=== PATIENT | female | born 1980 | race Caucasian/White ===

== ENCOUNTER 2017-04-27 13:17 | Emergency (ER) | payer SELFPAY ==
[~2017-04-27] VITALS: Ht 167.6 cm; Wt 51.0 kg
[~2017-04-27 13:17] MED LIST: TRAM50 PO; antacid
[2017-04-27 13:20] VITALS: BP 147/71; PULSE 123; RESP 16; TEMP 98; O2SAT 97
--- NOTE | 2017-04-27 13:51 | PD ---
HPI Chief Complaint: GI Complaint Time Seen by Provider: 13:27 Travel History International Travel<30 days: No Contact w/Intl Traveler<30days: No Traveled to known affect area: No History of Present Illness HPI 37-year-old female presents with note of multiple episodes of nonbloody emesis since last night. She states she had a bowel movement today that started normal but then became loose. She states that she recently was around someone that she shared a drink with that have food poisoning. She states that she's not having any fever or sharp abdominal pain or other concurrent complaints. She is currently on her menstrual cycle. Quality is nonbloody. Severity is multiple episodes. Duration is since last night. She denies specific modifying factors. PFSH Past Medical History Medical History: Denies Significant Hx Influenza Vaccination: No ?: Not LMP: NOW Past Surgical History Cholecystectomy: Yes Social History Alcohol Use: Yes (OCC) Tobacco Use: Yes (1 PPD) Substance Use: No Allergies-Medications (Allergen,Severity, Reaction): Coded Allergies: No Known Allergies (Unverified , 04/27/17) Reported Meds & Prescriptions Reported Meds & Active Scripts Active Zofran Odt (Ondansetron Odt) 4 Mg Tab 4 Mg SL Q6HR PRN Ultram (Tramadol HCl) 50 Mg Tab 50 Mg PO Q6 PRN Reported [antacid] Review of Systems Except as stated in HPI: all other systems reviewed are Neg Physical Exam Narrative GENERAL: Well-nourished, well-developed patient. SKIN: Warm and dry. HEAD: Normocephalic and atraumatic. EYES: No injection or drainage. ENT: No nasal drainage noted. NECK: Supple, trachea midline. CARDIOVASCULAR: Regular rate and rhythm RESPIRATORY: no increased effort. No accessory muscle use. GASTROINTESTINAL: Abdomen soft, non-tender, nondistended. NEUROLOGICAL: Awake and alert. Motor and sensory grossly within normal limits. Normal speech. Data Data Last Documented VS Vital Signs Date Time Temp Pulse Resp B/P (MAP) Pulse Ox O2 Delivery O2 Flow Rate FiO2 04/27/17 13:20 98.0 123 16 147/71 (96) 97 Orders Orders Ed Urine Pregnancytest Poc (04/27/17 13:27) Ondansetron Odt (Zofran Odt) (04/27/17 14:00) Oral Rehydration (04/27/17 13:57) Ibuprofen (Motrin) (04/27/17 14:30) Ed Discharge Order (04/27/17 14:33) [facility] Medical Decision Making Medical Screen Exam Complete: Yes Emergency Medical Condition: Yes Medical Record Reviewed: Yes (pmh confirmed) Differential Diagnosis Gastroenteritis, gastritis, , dehydration Narrative Course Will check a care test and dose with Zofran ODT and reevaluate beta is negative, no emesis here, tolerating oral rehydration and wanting to go , Patient denies any new complaints and states that they are feeling better. Patient happy with care, all questions answered. Patient knows that follow up is incumbent on them and to return to the emergency room immediately if new or worsening symptoms develop. Patient given strict return precautions, vitals reviewed and are normal, agrees to further workup as an outpatient. Diagnosis Primary Impression: Vomiting Qualified Codes: R11.2 - Nausea with vomiting, unspecified Patient Instructions: General Instructions Additional Instructions: zofran as needed, follow with primary saturday, return as needed Med/Other Pt SpecificInfo: Prescription(s) given Scripts Ondansetron Odt (Zofran Odt) 4 Mg Tab 4 MG SL Q6HR Y for Nausea/Vomiting, #15 TAB 0 Refills Prov: Naina Banegas MD 04/27/17 Disposition: 01 DISCHARGE HOME Condition: Stable Naina Banegas MD Apr 27, 2017 13:51
[2017-04-27] MEDS ORDERED: ONDANSETRON ODT 4 MG TAB PO ONE (14:00)
[2017-04-27] MEDS ORDERED: IBUPROFEN 600 MG TAB PO ONE (14:30)
[2017-04-27] MEDS ORDERED: ZOFR4TAB3 SL (14:34)
[2017-04-27] MEDS ORDERED: PRED50 PO (22:49)
[2017-04-28] MEDS ORDERED: CIPR250T2 PO (12:24)
[2017-04-28] MEDS ORDERED: ZOFR4TAB3 SL (12:24)
== END 2017-04-27 14:49 | disposition home or self-care (01) ==
LOC: PHED 13:17
DX: R11.2 Nausea with vomiting, unspecified (principal); F17.200 Nicotine dependence, unspecified, uncomplicated
CPT/HCPCS: 84703; 99283

== ENCOUNTER 2017-04-27 20:23 | Observation (INO) | payer SELFPAY ==
[~2017-04-27] VITALS: Ht 167.6 cm; Wt 51.1 kg
[~2017-04-27 20:23] MED LIST changes: +ZOFR4TAB3 SL
[2017-04-27 21:10] VITALS: BP 130/65; PULSE 109; RESP 17; TEMP 98; O2SAT 98
[2017-04-27] MEDS ORDERED: SODIUM CHLOR 0.9% 1000 ML INJ 1,000 ML IV SCH (21:52)
[2017-04-27] MEDS ORDERED: SODIUM CHLORIDE 0.9% FLUSH 10 ML FLUSH IV FLUSH PRN ×2 (22:00→23:15)
[2017-04-27] MEDS ORDERED: ONDANSETRON HCL 4 MG/2 ML VIAL IVP ONE (22:00)
--- NOTE | 2017-04-27 22:00 | PD ---
HPI Chief Complaint: GI Complaint Time Seen by Provider: 21:42 Travel History International Travel<30 days: No Contact w/Intl Traveler<30days: No Traveled to known affect area: No History of Present Illness HPI The patient is a 37-year-old female that has been vomiting all day. Since 7:45 PM she started vomiting small amounts of blood. She denies any melanotic or bloody stools. She denies any fever. She is already had a cholecystectomy and states that she has had diarrhea after cholecystectomy. She was here earlier today and given Zofran. She took the Zofran but continues to vomit. She denies any diarrhea which is unusual for the patient because she usually has diarrhea. She states she had one solid stool today. A urine test was done earlier today when she was here and was negative. PFSH Past Medical History ?: Not LMP: now Past Surgical History Cholecystectomy: Yes Social History Alcohol Use: Yes (OCC) Tobacco Use: Yes (1 PPD) Substance Use: No Allergies-Medications (Allergen,Severity, Reaction): Coded Allergies: No Known Allergies (Unverified , 04/27/17) Reported Meds & Prescriptions Reported Meds & Active Scripts Active Prednisone 50 Mg Tab 50 Mg PO BID PRN Zofran Odt (Ondansetron Odt) 4 Mg Tab 4 Mg SL Q6HR PRN Ultram (Tramadol HCl) 50 Mg Tab 50 Mg PO Q6 PRN Reported [antacid] Review of Systems Except as stated in HPI: all other systems reviewed are Neg Physical Exam Narrative GENERAL: The patient appears moderately dehydrated, alert, diaphoretic in moderate apparent distress with her abdominal discomfort in the midline epigastrium. Her vital signs show heart rate of 109 but are otherwise normal. SKIN: Focused skin assessment cool/diaphoretic. HEAD: Atraumatic. Normocephalic. EYES: Pupils equal and round. No scleral icterus. No injection or drainage. ENT: No nasal bleeding or discharge. Mucous membranes pink and moist. NECK: Trachea midline. No JVD. CARDIOVASCULAR: Regular rate and rhythm. No murmur appreciated. RESPIRATORY: No accessory muscle use. Clear to auscultation. Breath sounds equal bilaterally. GASTROINTESTINAL: Abdomen soft, with tenderness in the midline epigastrium to direct palpation, nondistended. Hepatic and splenic margins not palpable. No guarding or rebound is present. MUSCULOSKELETAL: No obvious deformities. No clubbing. No cyanosis. No edema. NEUROLOGICAL: Awake and alert. No obvious cranial nerve deficits. Motor grossly within normal limits. Normal speech. PSYCHIATRIC: Appropriate mood and affect; insight and judgment normal. RECTAL EXAM: No masses or tenderness, stool is brown and guaiac positive. A small amount of stool was saved for studies. Data Data Last Documented VS Vital Signs Date Time Temp Pulse Resp B/P (MAP) Pulse Ox O2 Delivery O2 Flow Rate FiO2 04/27/17 21:10 98.0 109 17 130/65 (86) 98 Orders Orders Beta Hcg (Quant/Titer) (04/27/17 21:52) Complete Blood Count With Diff (04/27/17:52) Comprehensive Metabolic Panel (04/27/17:52) Lipase (04/27/17:52) Urinalysis - C+S If Indicated (04/27/17:52) Iv Access Insert/Monitor (04/27/17:52) Ecg Monitoring (04/27/17:52) Oximetry (04/27/17:52) Ondansetron Inj (Zofran Inj) (04/27/17 22:00) Sodium Chlor 0.9% 1000 Ml Inj (Ns 1000 M (04/27/17 21:52) Sodium Chloride 0.9% Flush (Ns Flush) (04/27/17 22:00) Place In Observation (04/27/17 ) Vital Signs (Adult) Q4H (04/27/17 23:08) Activity Oob Ad Bren (04/27/17 23:08) Intake + Output PARESH.QSHIFT (04/27/17 23:08) Diet Regular Basic (04/28/17 Breakfast) Sodium Chlor 0.9% 1000 Ml Inj (Ns 1000 M (04/27/17 23:08) Sodium Chloride 0.9% Flush (Ns Flush) (04/27/17 23:15) Sodium Chloride 0.9% Flush (Ns Flush) (04/28/17 09:00) Ondansetron Inj (Zofran Inj) (04/27/17 23:15) Comprehensive Metabolic Panel (04/28/17 06:00) Complete Blood Count With Diff (04/28/17 06:00) Scd Bilateral/Knee High PARESH.BID (04/27/17 23:08) Jose Bilateral/Knee High PARESH.QSHIFT (04/27/17 23:10) Acetaminophen (Tylenol) (04/27/17 23:15) Acetamin-Hydrocod 325-5 Mg ([place] 5-325 (04/27/17 23:15) Morphine Inj (Morphine Inj) (04/27/17 23:15) Docusate Sodium-Senna (Marquita-Colace) (04/28/17 09:00) Magnesium Hydroxide Liq (Milk Of Magnesi (04/27/17 23:15) Sennosides (Senokot) (04/27/17 23:15) Bisacodyl Supp (Dulcolax Supp) (04/27/17 23:15) Lactulose Liq (Lactulose Liq) (04/27/17 23:15) Famotidine Inj (Pepcid Inj) (04/27/17 23:15) Labs Laboratory Tests Test 04/27/17 22:10 White Blood Count 11.8 TH/MM3 Red Blood Count 4.32 MIL/MM3 Hemoglobin 13.0 GM/DL Hematocrit 37.6 % Mean Corpuscular Volume 86.9 FL Mean Corpuscular Hemoglobin 30.0 PG Mean Corpuscular Hemoglobin Concent 34.5 % Red Cell Distribution Width 12.8 % Platelet Count 241 TH/MM3 Mean Platelet Volume 8.9 FL Neutrophils (%) (Auto) 71.5 % Lymphocytes (%) (Auto) 16.0 % Monocytes (%) (Auto) 11.3 % Eosinophils (%) (Auto) 0.2 % Basophils (%) (Auto) 1.0 % Neutrophils # (Auto) 8.5 TH/MM3 Lymphocytes # (Auto) 1.9 TH/MM3 Monocytes # (Auto) 1.3 TH/MM3 Eosinophils # (Auto) 0.0 TH/MM3 Basophils # (Auto) 0.1 TH/MM3 CBC Comment DIFF FINAL Differential Comment Blood Urea Nitrogen 16 MG/DL Creatinine 0.56 MG/DL Random Glucose 96 MG/DL Total Protein 6.9 GM/DL Albumin 3.5 GM/DL Calcium Level 9.3 MG/DL Alkaline Phosphatase 113 U/L Aspartate Amino Transf (AST/SGOT) 42 U/L Alanine Aminotransferase (ALT/SGPT) 44 U/L Total Bilirubin 0.7 MG/DL Sodium Level 137 MEQ/L Potassium Level 4.0 MEQ/L Chloride Level 103 MEQ/L Carbon Dioxide Level 24.1 MEQ/L Anion Gap 10 MEQ/L Estimat Glomerular Filtration Rate 121 ML/MIN Lipase 36 U/L Human Chorionic Gonadotropin, Quant LESS THAN 1 MIU/ML MDM Medical Decision Making Medical Screen Exam Complete: Yes Emergency Medical Condition: Yes Medical Record Reviewed: Yes Interpretation(s) The complete metabolic profile is normal except for a GOT of 42. The lipase is normal. The beta-hCG is less than 1, she is not . The CBC is normal except for a white count of 11,800. Differential Diagnosis Viral gastroenteritis, bacterial enteritis, food poisoning, pancreatitis, electrolyte disorder, dehydration, anemia, clostridium difficile, lower GI bleed Narrative Course Intractable nausea/vomiting, small bowel obstruction-unlikely, - unlikely, electrolyte disorder, dehydration Physician Communication Physician Communication I discussed the patient with Dr. Reid, the patient will be admitted to her for intractable vomiting. Diagnosis Primary Impression: Intractable vomiting with nausea Additional Impression: Diarrhea Admitting Information Admitting Physician Requests: Admit Scripts Prednisone (Prednisone) 50 Mg Tab 50 MG PO BID Y for 4 days than one daily X 4 day, #12 TAB 0 Refills Prov: Reid Allen MD 04/27/17 Reid Allen MD Apr 27, 2017 22:00
[2017-04-27 22:20] LABS: AUTOMATED NEUTROPHIL # 8.5 TH/MM3 (1.8-7.7); BASOPHIL # 0.1 TH/MM3 (0-0.2); EOSINOPHIL % 0.2 % (0.0-4.0); HEMATOCRIT 37.6 % (35.0-46.0); HEMO FLAGS DIFF FINAL; LYMPHOCYTE # 1.9 TH/MM3 (1.0-4.8); MEAN CELL VOLUME 86.9 FL (80.0-100.0); MEAN CORPUSCULAR HGB CONC 34.5 % (32.0-36.0); MONO % 11.3 % (0.0-8.0); NEUT % 71.5 % (16.0-70.0); PLATELET COUNT 241 TH/MM3 (150-450); RED BLOOD COUNT 4.32 MIL/MM3 (4.00-5.30); RED CELL DISTRIBUTION WIDTH 12.8 % (11.6-17.2); WHITE BLOOD COUNT 11.8 TH/MM3 (4.0-11.0)
[2017-04-27 22:28] LABS: CHLORIDE 103 MEQ/L (98-107); SODIUM (NA) 137 MEQ/L (136-145)
[2017-04-27 22:31] LABS: ANION GAP 10 MEQ/L (5-15); BICARBONATE 24.1 MEQ/L (21.0-32.0)
[2017-04-27 22:32] LABS: BLOOD UREA NITROGEN 16 MG/DL (7-18)
[2017-04-27 22:34] LABS: ALT (GPT) 44 U/L (10-53); AST (GOT) 42 U/L (15-37); GLOMERULAR FILTRATION RATE 121 ML/MIN (>89)
[2017-04-27 22:36] LABS: TOTAL BILIRUBIN ADULT 0.7 MG/DL (0.2-1.0)
[2017-04-27 22:37] LABS: ALKALINE PHOSPHATASE 113 U/L (45-117)
[2017-04-27 22:39] LABS: BETA HCG QUANT LESS THAN 1 MIU/ML (0-5)
[2017-04-27] MEDS ORDERED: PRED50 PO (22:49)
[2017-04-27] MEDS ORDERED: ACETAMINOPHEN 325 MG TAB PO PRN (23:15)
[2017-04-27] MEDS ORDERED: MORPHINE SULFATE 4 MG/ML INJ IV PUSH PRN (23:15)
[2017-04-27] MEDS ORDERED: MAGNESIUM HYDROXIDE SUSP 30 ML CUP PO PRN (23:15)
[2017-04-27] MEDS ORDERED: ACETAMINOPHEN/HYDROcodone 325 MG/5 MG TAB PO PRN (23:15)
[2017-04-27] MEDS ORDERED: LACTULOSE SYRUP 20 GM/30 ML CUP PO PRN (23:15)
[2017-04-27] MEDS ORDERED: ONDANSETRON HCL 4 MG/2 ML VIAL IVP PRN (23:15)
[2017-04-27] MEDS ORDERED: BISACODYL 10 MG SUPP RECTAL PRN (23:15)
[2017-04-27] MEDS ORDERED: SENNOSIDES 8.6 MG TAB PO PRN (23:15)
[2017-04-27] MEDS: FAMOTIDINE 20 MG/2 ML VIAL IV PUSH SCH (23:50)
[2017-04-27 23:59] VITALS: BP 128/69; TEMP 98.5
[2017-04-28 00:04] LABS: BLOOD, URINE MOD (NEG); GLUCOSE,URINE NEG (NEG); KETONE, URINE 40 mg/dL (NEG); NITRITE,URINE NEG (NEG)
[2017-04-28 00:14] LABS: MUCUS URINE MOD /lpf (OCC); URINE COLOR YELLOW (YELLW/STRAW)
[2017-04-28 00:15] LABS: COMMENT (UR) CULTURE INDICATED; CULTURE IF INDICATED CULTURE INDICATED; SQUAMOUS EPITHELIAL CELL URINE 0-5 /hpf (0-5)
[2017-04-28] MEDS: SODIUM CHLOR 0.9% 1000 ML INJ 1,000 ML IV SCH ×2 (00:32→09:00)
[2017-04-28 01:23] VITALS: BP 123/56; PULSE 79; RESP 16; TEMP 98; O2SAT 96
[2017-04-28 04:06] VITALS: BP 127/62; PULSE 79; RESP 18; TEMP 98.1; O2SAT 99
[2017-04-28] MEDS ORDERED: cefTRIAXone INJ 1,000 MG in SODIUM CHLORIDE 0.9% INJ 100 ML IV SCH (05:00)
[2017-04-28 08:28] LABS: CHLORIDE 106 MEQ/L (98-107); POTASSIUM 3.8 MEQ/L (3.5-5.1); SODIUM (NA) 138 MEQ/L (136-145)
[2017-04-28 08:30] LABS: AUTOMATED NEUTROPHIL # 4.9 TH/MM3 (1.8-7.7); BASOPHIL % 0.3 % (0.0-2.0); EOSINOPHIL % 0.1 % (0.0-4.0); HEMATOCRIT 30.7 % (35.0-46.0); HEMO FLAGS DIFF FINAL; LYMPH % 28.2 % (9.0-44.0); LYMPHOCYTE # 2.3 TH/MM3 (1.0-4.8); MEAN CELL VOLUME 89.8 FL (80.0-100.0); MEAN CORPUSCULAR HEMOGLOBIN 30.9 PG (27.0-34.0); MEAN CORPUSCULAR HGB CONC 34.4 % (32.0-36.0); MONO % 11.6 % (0.0-8.0); NEUT % 59.8 % (16.0-70.0); PLATELET COUNT 193 TH/MM3 (150-450); RED BLOOD COUNT 3.42 MIL/MM3 (4.00-5.30); RED CELL DISTRIBUTION WIDTH 13.4 % (11.6-17.2); WHITE BLOOD COUNT 8.2 TH/MM3 (4.0-11.0)
[2017-04-28] MEDS ORDERED: DOCUSATE SODIUM 50 MG/SENNA 8.6 MG TAB PO SCH (09:00)
[2017-04-28] MEDS: FAMOTIDINE 20 MG/2 ML VIAL IV PUSH SCH (09:00)
[2017-04-28] MEDS ORDERED: SODIUM CHLORIDE 0.9% FLUSH 10 ML FLUSH IV FLUSH SCH (09:00)
[2017-04-28 09:01] LABS: ALKALINE PHOSPHATASE 91 U/L (45-117); ALT (GPT) 35 U/L (10-53); ANION GAP 9 MEQ/L (5-15); AST (GOT) 29 U/L (15-37); BICARBONATE 22.8 MEQ/L (21.0-32.0); BLOOD UREA NITROGEN 14 MG/DL (7-18); GLOMERULAR FILTRATION RATE 155 ML/MIN (>89); TOTAL BILIRUBIN ADULT 0.5 MG/DL (0.2-1.0)
[2017-04-28 10:02] VITALS: BP 116/52; PULSE 99; RESP 20; TEMP 97.4; O2SAT 99
[2017-04-28 11:50] VITALS: BP 120/48; PULSE 99; RESP 20; TEMP 97.4; O2SAT 97
--- NOTE | 2017-04-28 12:23 | HHI.HP ---
[facility] Service [facility] Primary Care Physician No Primary Care Physician Admission Diagnosis intractable nausea/vomiting with diarrhea, dehydration Diagnoses: Travel History International Travel<30 Days: No Contact w/Intl Traveler <30 Da: No Traveled to Known Affected Are: No History of Present Illness This is a pleasant 37 year-old female with past medical history of GERD who presented to the ER complaining of 24-hour history of intractable nausea and vomiting. The patient states that she awoke early yesterday morning with nausea and vomiting. She vomited numerous times throughout the day. Denies any abdominal pain. Denied fevers but did have chills. Did have a friend who was ill recently with food poisoning however she did not eat the same food. The patient denied flank pain, dysuria or urgency. Symptoms have resolved since being in the hospital and she ate calvo and eggs this morning. She would like to go home. Review of Systems Constitutional: COMPLAINS OF: Chills, DENIES: Fever Eyes: DENIES: Blurred vision, Diplopia Ears, nose, mouth, throat: COMPLAINS OF: Throat pain (patient has throat pain today after vomiting), DENIES: Hoarseness Respiratory: DENIES: Cough, Shortness of breath Cardiovascular: DENIES: Chest pain, Palpitations Gastrointestinal: COMPLAINS OF: Diarrhea (chronic diarrhea), Nausea, Vomiting, DENIES: Abdominal pain Genitourinary: DENIES: Urgency, Dysuria Musculoskeletal: COMPLAINS OF: Muscle aches, DENIES: Neck pain Integumentary: DENIES: Rash Hematologic/lymphatic: DENIES: Lymphadenopathy Neurologic: DENIES: Abnormal gait, Headache Psychiatric: DENIES: Anxiety, Confusion Past Family Social History Past Medical History GERD Past Surgical History Cholecystectomy Reported Medications She takes ranitidine Allergies: Coded Allergies: No Known Allergies (Unverified , 04/27/17) Family History No known history of coronary artery disease diabetes or stroke Social History She smokes half-pack cigarettes per day. Drinks moderately every 2-3 weeks. Physical Exam Vital Signs Vital Signs Date Time Temp Pulse Resp B/P (MAP) Pulse Ox O2 Delivery O2 Flow Rate FiO2 04/28/17 10:02 97.4 99 20 116/52 (73) 99 04/28/17 04:06 98.1 79 18 127/62 (83) 99 04/28/17 01:23 98.0 79 16 123/56 (78) 96 04/27/17 23:59 98.5 102 15 128/69 (88) 99 04/27/17 21:10 98.0 109 17 130/65 (86) 98 Physical Exam GENERAL: Well-nourished, well-developed pleasant lean female patient. SKIN: Warm and dry. HEAD: Normocephalic. EYES: No scleral icterus. No injection or drainage. NECK: Supple, trachea midline. No JVD or lymphadenopathy. CARDIOVASCULAR: Regular rate and rhythm without murmurs, gallops, or rubs. RESPIRATORY: Breath sounds equal bilaterally. No accessory muscle use. GASTROINTESTINAL: Abdomen soft, non-tender, nondistended. EXTREMITIES: No cyanosis, or edema. NEUROLOGICAL: Awake, alert, and oriented x 3. Non-focal. Laboratory Laboratory Tests Test 04/27/17 22:10 04/27/17 23:55 04/28/17 06:30 White Blood Count 11.8 8.2 Red Blood Count 4.32 3.42 Hemoglobin 13.0 10.6 Hematocrit 37.6 30.7 Mean Corpuscular Volume 86.9 89.8 Mean Corpuscular Hemoglobin 30.0 30.9 Mean Corpuscular Hemoglobin Concent 34.5 34.4 Red Cell Distribution Width 12.8 13.4 Platelet Count 241 193 Mean Platelet Volume 8.9 9.4 Neutrophils (%) (Auto) 71.5 59.8 Lymphocytes (%) (Auto) 16.0 28.2 Monocytes (%) (Auto) 11.3 11.6 Eosinophils (%) (Auto) 0.2 0.1 Basophils (%) (Auto) 1.0 0.3 Neutrophils # (Auto) 8.5 4.9 Lymphocytes # (Auto) 1.9 2.3 Monocytes # (Auto) 1.3 1.0 Eosinophils # (Auto) 0.0 0.0 Basophils # (Auto) 0.1 0.0 CBC Comment DIFF FINAL DIFF FINAL Differential Comment Blood Urea Nitrogen 16 14 Creatinine 0.56 0.45 Random Glucose 96 102 Total Protein 6.9 5.7 Albumin 3.5 2.9 Calcium Level 9.3 8.3 Alkaline Phosphatase 113 91 Aspartate Amino Transf (AST/SGOT) 42 29 Alanine Aminotransferase (ALT/SGPT) 44 35 Total Bilirubin 0.7 0.5 Sodium Level 137 138 Potassium Level 4.0 3.8 Chloride Level 103 106 Carbon Dioxide Level 24.1 22.8 Anion Gap 10 9 Estimat Glomerular Filtration Rate 121 155 Lipase 36 Human Chorionic Gonadotropin, Quant LESS THAN 1 Urine Color YELLOW Urine Turbidity CLEAR Urine pH 6.0 Urine Specific [place] 1.022 Urine Protein 30 Urine Glucose (UA) NEG Urine Ketones 40 Urine Occult Blood MOD Urine Nitrite NEG Urine Bilirubin NEG Urine Leukocyte Esterase NEG Urine RBC 4-9 Urine WBC 6-8 Urine WBC Clumps FEW Urine Squamous Epithelial Cells 0-5 Urine Mucus MOD Microscopic Urinalysis Comment CULTURE INDICATED Date/Time Source Procedure Growth Status 04/27/17 23:55 Urine Clean Catch Urine Culture Pending Received Result Diagram: 04/28/1762904/28/17629 Caprini VTE Risk Assessment Caprini VTE Risk Assessment: No/Low Risk (score <= 1) Caprini Risk Assessment Model Point Value = 1 Point Value = 2 Point Value = 3 Point Value = 5 Age 41-60 Minor surgery BMI > 25 kg/m2 Swollen legs Varicose veins or History of unexplained or recurrent spontaneous Oral contraceptives or hormone replacement Sepsis (< 1 month) Serious lung disease, including pneumonia (< 1 month) Abnormal pulmonary function Acute myocardial infarction Congestive heart failure (< 1 month) History of inflammatory bowel disease Medical patient at bed rest Age 61-74 Arthroscopic surgery Major open surgery (> 45 min) Laparoscopic surgery (> 45 min) Malignancy Confined to bed (> 72 hours) Immobilizing plaster cast Central venous access Age >= 75 History of VTE Family history of VTE Factor V Leiden Prothrombin [id number] Lupus anticoagulant Anticardiolipin antibodies Elevated serum homocysteine Heparin-induced thrombocytopenia Other congenital or acquired thrombophilia Stroke (< 1 month) Elective arthroplasty Hip, pelvis, or leg fracture Acute spinal cord injury (< 1 month) Prophylaxis Regimen Total Risk Factor Score Risk Level Prophylaxis Regimen 0-1 Low Early ambulation 2 Moderate Order ONE of the following: *Sequential Compression Device (SCD) *Heparin 5000 units SQ BID 3-4 Higher Order ONE of the following medications: *Heparin 5000 units SQ TID *Enoxaparin/Lovenox 40 mg SQ daily (WT < 150 kg, CrCl > 30 mL/min) *Enoxaparin/Lovenox 30 mg SQ daily (WT < 150 kg, CrCl > 10-29 mL/min) *Enoxaparin/Lovenox 30 mg SQ BID (WT < 150 kg, CrCl > 30 mL/min) AND/OR *Sequential Compression Device (SCD) 5 or more Highest Order ONE of the following medications: *Heparin 5000 units SQ TID (Preferred with Epidurals) *Enoxaparin/Lovenox 40 mg SQ daily (WT < 150 kg, CrCl > 30 mL/min) *Enoxaparin/Lovenox 30 mg SQ daily (WT < 150 kg, CrCl > 10-29 mL/min) *Enoxaparin/Lovenox 30 mg SQ BID (WT < 150 kg, CrCl > 30 mL/min) AND *Sequential Compression Device (SCD) Assessment and Plan Problem List: (1) Gastroenteritis ICD Code: K52.9 - Noninfective gastroenteritis and colitis, unspecified Assessment and Plan -Vital gastroenteritis, resolved now tolerating by mouth. Discharge home, encourage by mouth fluid intake. -Possible UTI. Patient has no symptoms. We'll treat with Cipro. She is instructed to call back to the floor to check on her urine culture results in 48 hours. Shira Robb MD Apr 28, 2017 12:22
[2017-04-28] MEDS ORDERED: ZOFR4TAB3 SL (12:24)
[2017-04-28] MEDS ORDERED: CIPR250T2 PO (12:24)
== END 2017-04-28 15:08 | disposition home or self-care (01) ==
LOC: PHED 20:23 → INTOOBSV 23:10 → PHEDA 23:10 → UNDOADMIN 23:21 → PH3B 04-28 00:15 → PHEDA 04-28 00:15 → UNDODISIN 04-28 15:08
PROVIDERS: ADMIT Family Medicine; ATTEND Family Medicine
DX: K52.9 Noninfective gastroenteritis and colitis, unspecified (principal); E86.0 Dehydration; K21.9 Gastro-esophageal reflux disease without esophagitis; F17.210 Nicotine dependence, cigarettes, uncomplicated
CPT/HCPCS: 80053; 81001; 83690; 84702; 85025; 87086; 96361; 96365; 96375; 96376; 99285; G0378; J0696; J2405; J7030; 96374